=== PATIENT | female | born 1960 | race Caucasian/White ===

== ENCOUNTER 2019-11-17 06:16 | Emergency (ER) | payer OTHER ==
[~2019-11-17] VITALS: Ht 177.8 cm; Wt 83.0 kg
[~2019-11-17 06:16] MED LIST: ANASPAZ0.125 MG SUBLING; B COMPLEX PO; B12INJ SUBQ; ESTRACE2 MG PO; FLEXERIL PO; FLOVENT HFA INH; HYDROXYZINE HCL25 M1 PO; LEVOTHYROXINE PO; LYRICA 50 MG50 MG PO; MULTIVITAMINS PO; NORCO 5-325 TA1 EACH PO; OXYCODON-ACETA1 EAC1 PO; PROAIR HFA8.5 GM INH; PROZAC40 MG PO; SYNTHROID50 MCG PO; TRAMADOL HCL50 MG PO; VENLAFAXINE HC225 MG PO
[2019-11-17 06:36] LABS: ABSOLUTE EOSINOPHILS 0.3 thou/uL (0.0-0.7); ABSOLUTE LYMPHOCYTES 2.8 thou/uL (0.8-5.3); ABSOLUTE MONOCYTES 0.5 thou/uL (0.0-1.2); ABSOLUTE NEUTROPHILS 2.2 thou/uL (1.6-8.1); BASOPHILS 0.5 %; EOSINOPHILS 5.3 %; HEMATOCRIT 35.6 % (37.0-47.0); HEMOGLOBIN 11.8 gm/dL (12.0-15.0); LYMPHOCYTES 47.7 %; MCH 30.1 pg (26.0-34.0); MCHC 33.2 g/dL (28.0-37.0); MCV 90.5 fL (80.0-100.0); MONOCYTES 8.7 %; MPV 6.9 fl. (7.2-11.1); NUCLEATED RBCS 0 /100WBC; PLATELET COUNT* 335 thou/uL (150-400); POLYS 37.8 %; RBC 3.93 mil/uL (4.20-5.00); RDW-CV 14.5 % (10.5-14.5); WBC 5.8 thou/uL (4.0-11.0)
[2019-11-17 06:44] LABS: CALCIUM 7.3 mg/dL (8.5-10.1); CREATININE 0.8 mg/dL (0.6-1.3)
[2019-11-17 06:49] LABS: TOTAL BILIRUBIN 0.2 mg/dL (<0.1-1.0); TOTAL PROTEIN 6.2 g/dL (6.4-8.2)
[2019-11-17 06:53] LABS: ACETAMINOPHEN < 2 ug/mL (10-30); ALCOHOL 110 mg/dL (<10); SALICYLATE < 2.8 mg/dL (2.8-20.0)
[2019-11-17 08:18] LABS: URINE BILIRUBIN NEGATIVE (Negative); URINE BLOOD TRACE (Negative); URINE CLARITY CLEAR; URINE COLOR YELLOW; URINE GLUCOSE-RANDOM NEGATIVE (Negative); URINE KETONES NEGATIVE (Negative); URINE LEUKOCYTES-REFLEX NEGATIVE (Negative); URINE NITRITE-REFLEX NEGATIVE (Negative); URINE PROTEIN NEGATIVE (Negative); URINE UROBILINOGEN 0.2 E.U./dl (0.2-1.0)
[2019-11-17 08:25] LABS: AMP/METHAMP Negative (Negative); BARBITURATES Negative (Negative); BENZODIAZEPINES POSITIVE (Negative); COCAINE Negative (Negative); METHADONE Negative (Negative); OPIATES Negative (Negative); PCP Negative (Negative); THC Negative (Negative)
[2019-11-17 20:10] VITALS: BP 110/70
[2019-11-20] MEDS ORDERED: LYRICA 50 MG50 MG PO (12:07)
[2019-11-20] MEDS ORDERED: EFFEXOR XR75 MG PO (12:07)
[2019-11-20] MEDS ORDERED: PEPCID20 MG PO (12:08)
[2019-11-20] MEDS ORDERED: SYNTHROID50 MCG PO (12:09)
== END 2019-11-17 20:22 ==
LOC: M.ERS 06:16
PROVIDERS: Emergency Medicine Emergency Medical Services
DX: R45.851 Suicidal ideations (principal); F10.129 Alcohol abuse with intoxication, unspecified; Y90.5 Blood alcohol level of 100-119 mg/100 ml; G89.29 Other chronic pain; E03.9 Hypothyroidism, unspecified; Z88.2 Allergy status to sulfonamides; Z88.1 Allergy status to other antibiotic agents; Z90.710 Acquired absence of both cervix and uterus; Z79.899 Other long term (current) drug therapy